=== PATIENT | female | born 1950 | race Two or more races ===

== ENCOUNTER 2017-01-03 08:50 | Emergency (ER) | payer OTHER, MEDICAID ==
[~2017-01-03] VITALS: Ht 160 cm; Wt 68.0 kg
[~2017-01-03 08:50] MED LIST: ASPI81CH43; CITA10TA70; INSLANTI; INSUINJ; INSUINJ2; LISI-646; METO-169; SIMV-8
[2017-01-03 09:42] VITALS: BP 162/83
[2017-01-03 09:54] LABS: Urine Bilirubin Negative (Negative); Urine Blood Negative /uL (Negative); Urine Color Yellow (Yellow); Urine Glucose Normal (Normal); Urine Ketone Negative (Negative); Urine Nitrite Negative (Negative); Urine RBC 2 /hpf (0 - 4); Urine Squamous Epithelial Cell FEW /hpf (<5); Urine Urobilinogen Normal (Negative)
== END 2017-01-03 11:18 | disposition home or self-care (01) ==
LOC: ER 08:54
DX: N39.0 Urinary tract infection, site not specified (principal); E11.9 Type 2 diabetes mellitus without complications; I10 Essential (primary) hypertension; E78.5 Hyperlipidemia, unspecified; Z90.710 Acquired absence of both cervix and uterus; Z98.51 Tubal ligation status; Z86.73 Personal history of transient ischemic attack (TIA), and cerebral infarction without residual deficits
CPT/HCPCS: 81001

== ENCOUNTER 2018-01-31 18:47 | Inpatient (IN) | payer OTHER, MEDICAID ==
[~2018-01-31] VITALS: Ht 162.6 cm; Wt 73.1 kg
[2018-01-31] MEDS ORDERED: cloNIDine HCL 0.1 MG TAB PO ONE (19:30)
[2018-01-31] MEDS ORDERED: cloNIDine HCL 0.1 MG TAB ONE (19:32)
[2018-01-31 20:08] LABS: Basophils # (auto) 0 uL; Basophils % (auto) 0.6 % (0.0-2.0); Eosinophils # (auto) 0.3 uL; Eosinophils % (auto) 4.4 % (0.0-7.0); Hematocrit 40.9 % (36.0-46.0); Hemoglobin 13.6 g/dL (12.2-16.2); Lymphocytes # (auto) 1.9 uL; Lymphocytes % (auto) 29.7 % (10.0-50.0); Mean Corpuscular Hemoglobin 32.3 pg (28.0-32.0); Mean Corpuscular Hgb Conc. 33.3 g/dL (32.0-36.0); Mean Corpuscular Volume 96.8 fL (80.0-100.0); Monocytes # (auto) 0.6 uL; Monocytes % (auto) 9.6 % (0.0-12.0); Neutrophils # (auto) 3.6 uL; Neutrophils % (auto) 55.7 % (37.0-80.0); Nucleated Red Blood Cells % 0.1 %; Platelet Count (auto) 253 10^3/uL (140-450); Red Blood Cells 4.23 10^6/uL (4.0-5.20); Red Cell Distribution Width 13.6 % (11.8-14.3); White Blood Cell 6.5 10^3/uL (4.4-10.8)
[2018-01-31 20:20] LABS: Blood Urea Nitrogen 22 mg/dL (7-18); Calcium 8.3 mg/dL (8.5-10.1); Chloride 106 mmol/L (98-107); Potassium 4.1 mmol/L (3.5-5.1); Sodium 139 mmol/L (136-145)
[2018-01-31 20:22] LABS: INR 0.96 (0.9-1.15); Partial Thromboplastin Time 28.2 sec (22.64-33.71); Prothrombin Time 10.5 sec (9.37-12.3)
[2018-01-31 20:24] LABS: Anion Gap 6 (5-15); Carbon Dioxide 27 mmol/L (21-32); Glucose 181 mg/dL (74-106)
[2018-01-31 20:25] LABS: Alanine Aminotransferase 21 U/L (13-56); Albumin 3.3 g/dL (3.4-5.0); BUN/Creatinine Ratio 27.2; GFR African American 91 mL/min; GFR Non-African American 75 mL/min; Magnesium 2.2 mg/dL (1.6-2.6)
[2018-01-31 20:36] LABS: Alkaline Phosphatase 94 U/L (45-117); Aspartate Aminotransferase 12 U/L (15-37); Bilirubin, Total 0.2 mg/dL (0.2-1.0); Total Protein 7.2 g/dL (6.4-8.2)
[2018-02-01] MEDS ORDERED: cloNIDine HCL 0.1 MG TAB PO PRN (06:30)
[2018-02-01] MEDS ORDERED: DEXTROSE (50%) 50ML SYRG IV PRN (06:30)
[2018-02-01] MEDS ORDERED: ONDANSETRON HCL 4 MG/2 ML VIAL IV PRN (06:30)
[2018-02-01] MEDS ORDERED: ACETAMINOPHEN 325 MG TAB PO PRN (06:30)
[2018-02-01] MEDS: LEVOTHYROXINE SODIUM 25 MCG TAB PO SCH (08:04)
[2018-02-01 08:33] LABS: Urine Bacteria MOD /hpf (None Seen); Urine Blood 1+ /uL (Negative); Urine Mucus FEW (None Seen); Urine Specific Gravity 1.021 (1.001-1.035); Urine WBC 1747 /hpf (0 - 5); Urine WBC Clumps PRESENT /hpf (None Seen)
[2018-02-01 08:54] LABS: Alcohol, Urine < 3.0 mg/dL (0-5); Amphetamine Screen, Urine NEGATIVE (NEGATIVE); Barbiturate Scree,Urine NEGATIVE (NEGATIVE); Benzodiazephine Screen, Urine NEGATIVE (NEGATIVE); Cannabinoid Screen, Urine NEGATIVE (NEGATIVE); Cocaine Screen, Urine NEGATIVE (NEGATIVE); Opiate Scree,Urine NEGATIVE (NEGATIVE); Phencyclidine Screen, Urine NEGATIVE (NEGATIVE)
[2018-02-01] MEDS ORDERED: LISINOPRIL 5 MG TAB PO SCH (10:00)
[2018-02-01] MEDS: METOPROLOL SUCCINATE XL 50 MG TAB PO SCH (10:36)
[2018-02-01] MEDS: FAMOTIDINE 20 MG TAB PO SCH ×2 (10:36→21:51)
[2018-02-01] MEDS: ENOXAPARIN SOD 40 MG/0.4 ML SYRINGE SC SCH (10:38)
[2018-02-01 10:45] VITALS: BP 169/75
[2018-02-01] MEDS ORDERED: DOCU-55 PO (10:52)
[2018-02-01] MEDS ORDERED: INSLANTI SC (10:52)
[2018-02-01] MEDS ORDERED: SIMV-8 PO (10:52)
[2018-02-01] MEDS ORDERED: INSLISPI SC (10:52)
[2018-02-01] MEDS ORDERED: TIZA4CAP7 PO (10:52)
[2018-02-01] MEDS ORDERED: LEVO50TA7 PO (10:52)
[2018-02-01] MEDS ORDERED: ASPI81TA27 PO (10:52)
[2018-02-01] MEDS ORDERED: LISI10TA6 PO (10:52)
[2018-02-01] MEDS ORDERED: METO25TA62 PO (10:52)
[2018-02-01 12:30] VITALS: BP 114/69
[2018-02-01] MEDS: ACCU-CHEK COMFORT CURVE STRIP VI SCH ×2 (12:40→20:00)
[2018-02-01] MEDS: InsuLIN REG 1unit/0.01ml Soln (100units/ml) SC SCH ×2 (12:40→18:00)
[2018-02-01] MEDS ORDERED: cefTRIAXone 1GM/10ml IVPUSH 10 ML IV ONE (14:00)
[2018-02-01] MEDS ORDERED: LISINOPRIL 5 MG TAB PO ONE (14:15)
[2018-02-01 16:57] VITALS: BP 158/78
[2018-02-01 20:00] VITALS: BP 136/70
[2018-02-01] MEDS: ATORVASTATIN 20 MG TAB PO SCH (21:50)
[2018-02-01] MEDS: INSULIN LANTUS (GLARGINE) 1 /0.01ml (100units/ml) SC SCH (21:51)
[2018-02-01 23:23] VITALS: BP 136/70
[2018-02-02] MEDS: ACCU-CHEK COMFORT CURVE STRIP VI SCH ×4 (00:09→17:58)
[2018-02-02] MEDS: InsuLIN REG 1unit/0.01ml Soln (100units/ml) SC SCH ×4 (00:09→17:59)
[2018-02-02 05:30] VITALS: BP 170/70
[2018-02-02 06:21] LABS: Basophils # (auto) 0 uL; Basophils % (auto) 0.6 % (0.0-2.0); Eosinophils # (auto) 0.3 uL; Eosinophils % (auto) 6.1 % (0.0-7.0); Hematocrit 34.9 % (36.0-46.0); Hemoglobin 11.8 g/dL (12.2-16.2); Lymphocytes # (auto) 1.6 uL; Lymphocytes % (auto) 31.6 % (10.0-50.0); Mean Corpuscular Hemoglobin 32.9 pg (28.0-32.0); Mean Corpuscular Hgb Conc. 33.8 g/dL (32.0-36.0); Mean Corpuscular Volume 97.4 fL (80.0-100.0); Monocytes # (auto) 0.5 uL; Monocytes % (auto) 10.9 % (0.0-12.0); Neutrophils # (auto) 2.5 uL; Neutrophils % (auto) 50.8 % (37.0-80.0); Nucleated Red Blood Cells % 0.1 %; Platelet Count (auto) 210 10^3/uL (140-450); Red Blood Cells 3.58 10^6/uL (4.0-5.20); Red Cell Distribution Width 13.8 % (11.8-14.3)
[2018-02-02] MEDS: LEVOTHYROXINE SODIUM 25 MCG TAB PO SCH (06:36)
[2018-02-02 06:45] LABS: Albumin 2.7 g/dL (3.4-5.0); Bilirubin, Total 0.4 mg/dL (0.2-1.0); Potassium 3.7 mmol/L (3.5-5.1); Total Protein 5.9 g/dL (6.4-8.2)
[2018-02-02] MEDS: cefTRIAXone 1GM/10ml IVPUSH 10 ML IV SCH (09:11)
[2018-02-02] MEDS: FAMOTIDINE 20 MG TAB PO SCH ×2 (09:14→22:45)
[2018-02-02] MEDS: ENOXAPARIN SOD 40 MG/0.4 ML SYRINGE SC SCH (09:14)
[2018-02-02] MEDS: LISINOPRIL 10 MG TAB PO SCH (09:15)
[2018-02-02] MEDS: METOPROLOL SUCCINATE XL 50 MG TAB PO SCH (09:16)
[2018-02-02 13:00] VITALS: BP 146/67
[2018-02-02 17:03] VITALS: BP 158/79
[2018-02-02 20:00] VITALS: BP 118/66
[2018-02-02 22:00] VITALS: BP 122/59
[2018-02-02] MEDS: INSULIN LANTUS (GLARGINE) 1 /0.01ml (100units/ml) SC SCH (22:00)
[2018-02-02] MEDS: ATORVASTATIN 20 MG TAB PO SCH (22:45)
[2018-02-02] MEDS: HYDROcodone-ACET 5/325MG TAB PO PRN (22:46)
[2018-02-03] MEDS: InsuLIN REG 1unit/0.01ml Soln (100units/ml) SC SCH ×4 (00:41→17:27)
[2018-02-03] MEDS: TEMAZEPAM 15 MG CAP PO PRN ×2 (00:41→22:19)
[2018-02-03] MEDS: ACCU-CHEK COMFORT CURVE STRIP VI SCH ×4 (00:41→17:27)
[2018-02-03 05:29] VITALS: BP 148/76
[2018-02-03] MEDS: LEVOTHYROXINE SODIUM 25 MCG TAB PO SCH (06:41)
[2018-02-03] MEDS: cefTRIAXone 1GM/10ml IVPUSH 10 ML IV SCH (08:47)
[2018-02-03 09:00] VITALS: BP 132/61
[2018-02-03] MEDS: ENOXAPARIN SOD 40 MG/0.4 ML SYRINGE SC SCH (09:23)
[2018-02-03] MEDS: LISINOPRIL 10 MG TAB PO SCH (09:24)
[2018-02-03] MEDS: METOPROLOL SUCCINATE XL 50 MG TAB PO SCH (09:25)
[2018-02-03] MEDS: FAMOTIDINE 20 MG TAB PO SCH ×2 (09:25→22:18)
[2018-02-03] MEDS ORDERED: LEV25T PO (09:54)
[2018-02-03 13:00] VITALS: BP 131/72
[2018-02-03 17:00] VITALS: BP 147/74
[2018-02-03 20:00] VITALS: BP 141/74
[2018-02-03] MEDS: HYDROcodone-ACET 5/325MG TAB PO PRN (20:43)
[2018-02-03 22:00] VITALS: BP 141/74
[2018-02-03] MEDS: ATORVASTATIN 20 MG TAB PO SCH (22:18)
[2018-02-03] MEDS: INSULIN LANTUS (GLARGINE) 1 /0.01ml (100units/ml) SC SCH (22:19)
[2018-02-04] MEDS: InsuLIN REG 1unit/0.01ml Soln (100units/ml) SC SCH ×2 (00:26→06:00)
[2018-02-04] MEDS: ACCU-CHEK COMFORT CURVE STRIP VI SCH ×2 (00:27→06:20)
[2018-02-04 05:00] VITALS: BP 146/71
[2018-02-04] MEDS: LEVOTHYROXINE SODIUM 25 MCG TAB PO SCH (06:35)
[2018-02-04] MEDS ORDERED: AMPI500C8 PO (08:44)
[2018-02-04] MEDS ORDERED: LISI10TA6 PO (08:49)
[2018-02-04 09:00] VITALS: BP 148/65
[2018-02-04] MEDS: cefTRIAXone 1GM/10ml IVPUSH 10 ML IV SCH (09:00)
[2018-02-04] MEDS: ENOXAPARIN SOD 40 MG/0.4 ML SYRINGE SC SCH (10:00)
[2018-02-04] MEDS: FAMOTIDINE 20 MG TAB PO SCH (11:07)
[2018-02-04] MEDS: METOPROLOL SUCCINATE XL 50 MG TAB PO SCH (11:07)
[2018-02-04] MEDS: LISINOPRIL 10 MG TAB PO SCH (11:08)
== END 2018-02-04 12:00 | disposition home or self-care (01) | DRG 292 ==
LOC: EDBD 18:47 → ER 18:47 → OVERFLOW 18:48 → CENTRAL 02-01 08:17
PROVIDERS: ADMIT Nurse Practitioner; ATTEND Internal Medicine
DX: I11.0 Hypertensive heart disease with heart failure (principal); E44.1 Mild protein-calorie malnutrition; G93.89 Other specified disorders of brain; I69.354 Hemiplegia and hemiparesis following cerebral infarction affecting left non-dominant side; N39.0 Urinary tract infection, site not specified; B96.20 Unspecified Escherichia coli [E. coli] as the cause of diseases classified elsewhere; E11.9 Type 2 diabetes mellitus without complications; I16.0 Hypertensive urgency; I50.9 Heart failure, unspecified; E03.9 Hypothyroidism, unspecified; E78.5 Hyperlipidemia, unspecified; F32.9 Major depressive disorder, single episode, unspecified; F41.9 Anxiety disorder, unspecified; I70.0 Atherosclerosis of aorta; Z74.01 Bed confinement status; Z79.899 Other long term (current) drug therapy; Z82.49 Family history of ischemic heart disease and other diseases of the circulatory system; Z83.3 Family history of diabetes mellitus; Z90.710 Acquired absence of both cervix and uterus; Z68.27 Body mass index [BMI] 27.0-27.9, adult
CPT/HCPCS: 36415; 51702; 70450; 71045; 80053; 80307; 81001; 82962; 83735; 83880; 84443; 84484; 85025; 85379; 85610; 85730; 87086; 87088; 87186; 93005; 93970; 94761; J1815

== ENCOUNTER 2018-09-04 18:40 | Emergency (ER) | payer OTHER, MEDICAID ==
[~2018-09-04] VITALS: Ht 160 cm; Wt 72.6 kg
[~2018-09-04 18:40] MED LIST changes: +AMPI500C8 PO; -ASPI81CH43; +ASPI81TA27 PO; -CITA10TA70; +DOCU-55 PO; -INSLANTI; +INSLANTI SC; +INSLISPI SC; -INSUINJ; -INSUINJ2; +LEV25T PO; -LISI-646; +LISI10TA6 PO; -METO-169; +METO25TA62 PO; -SIMV-8; +SIMV-8 PO; +TIZA4CAP7 PO
[2018-09-04 20:39] LABS: Basophils # (auto) 0 uL; Basophils % (auto) 0.6 % (0.0-2.0); Eosinophils # (auto) 0.3 uL; Eosinophils % (auto) 4.3 % (0.0-7.0); Hematocrit 37.7 % (36.0-46.0); Hemoglobin 12.6 g/dL (12.2-16.2); Lymphocytes # (auto) 1.7 uL; Lymphocytes % (auto) 27.6 % (10.0-50.0); Mean Corpuscular Hemoglobin 32.8 pg (28.0-32.0); Mean Corpuscular Hgb Conc. 33.5 g/dL (32.0-36.0); Mean Corpuscular Volume 97.9 fL (80.0-100.0); Monocytes # (auto) 0.6 uL; Monocytes % (auto) 9.2 % (0.0-12.0); Neutrophils # (auto) 3.5 uL; Neutrophils % (auto) 58.3 % (37.0-80.0); Platelet Count (auto) 208 10^3/uL (140-450); Red Blood Cells 3.85 10^6/uL (4.0-5.20); Red Cell Distribution Width 13.4 % (11.8-14.3); White Blood Cell 6.1 10^3/uL (4.4-10.8)
[2018-09-04 20:55] LABS: INR 0.99 (0.9-1.15); Partial Thromboplastin Time 27.9 sec (23.78-33.04); Prothrombin Time 10.6 sec (9.27-12.13)
[2018-09-04 20:56] LABS: Albumin 3.1 g/dL (3.4-5.0); BUN/Creatinine Ratio 27.2; Calcium 7.8 mg/dL (8.5-10.1)
[2018-09-04 20:59] LABS: Bilirubin, Total 0.2 mg/dL (0.2-1.0); Total Protein 6.7 g/dL (6.4-8.2)
[2018-09-04 22:46] VITALS: BP 155/70
== END 2018-09-04 23:14 | disposition home or self-care (01) ==
LOC: EDBD 18:40 → ER 18:45
DX: E11.65 Type 2 diabetes mellitus with hyperglycemia (principal); E86.0 Dehydration; R53.1 Weakness; E78.5 Hyperlipidemia, unspecified; I10 Essential (primary) hypertension; Z86.73 Personal history of transient ischemic attack (TIA), and cerebral infarction without residual deficits; Z79.4 Long term (current) use of insulin; Z90.710 Acquired absence of both cervix and uterus; Z98.51 Tubal ligation status
CPT/HCPCS: 36415; 71045; 80053; 85025; 85610; 85730; 93005

== ENCOUNTER 2018-09-19 13:32 | Emergency (ER) | payer OTHER, MEDICAID ==
[~2018-09-19] VITALS: Ht 160 cm; Wt 72.6 kg
[2018-09-19 13:50] VITALS: BP 163/70
== END 2018-09-19 15:33 | disposition home or self-care (01) ==
LOC: ER 13:32
DX: I10 Essential (primary) hypertension (principal); E11.9 Type 2 diabetes mellitus without complications; E78.5 Hyperlipidemia, unspecified; Z86.73 Personal history of transient ischemic attack (TIA), and cerebral infarction without residual deficits; Z90.710 Acquired absence of both cervix and uterus; Z98.51 Tubal ligation status; Z87.440 Personal history of urinary (tract) infections; Z79.2 Long term (current) use of antibiotics; Z79.4 Long term (current) use of insulin
CPT/HCPCS: 82962

== ENCOUNTER → 2019-01-29 | Outpatient (CLI) | payer OTHER, MEDICAID | END | disposition home or self-care (01) | LOC: Rad HDHVI 12:24 | PROVIDERS: ATTEND Internal Medicine Cardiovascular Disease | DX: I12.9 Hypertensive chronic kidney disease with stage 1 through stage 4 chronic kidney disease, or unspecified chronic kidney disease (principal); N18.3 Chronic kidney disease, stage 3 (moderate); Z95.0 Presence of cardiac pacemaker | CPT/HCPCS: 93306 ==

== ENCOUNTER 2019-04-08 17:02 | Emergency (ER) | payer OTHER, MEDICAID ==
[~2019-04-08] VITALS: Ht 157.5 cm; Wt 68.0 kg
[~2019-04-08 17:02] MED LIST changes: -AMPI500C8 PO; -DOCU-55 PO; -LEV25T PO; +LEVO25TA6 PO; +LEVO50TA7 PO; -LISI10TA6 PO; -TIZA4CAP7 PO
[2019-04-08 23:44] VITALS: BP 117/54
== END 2019-04-09 01:00 | disposition left against medical advice (07) ==
LOC: EDBD 17:02 → ER 17:08
DX: M25.561 Pain in right knee (principal); Z53.21 Procedure and treatment not carried out due to patient leaving prior to being seen by health care provider
CPT/HCPCS: 73562

== ENCOUNTER → 2019-07-30 | Outpatient (CLI) | payer OTHER, MEDICAID ==
[~2019-07-30] VITALS: Ht 160 cm; Wt 72.6 kg
[~2019-07-30] MED LIST changes: +ADENOSINE 61 MG in GIVE UN-DILUTED 0 ML IV ONE; +ADENOSINE 90 MG/30 ML INJ IV ONE; +ASPI-404 PO; -ASPI81TA27 PO; +ONDANSETRON HCL 4 MG/2 ML VIAL ONE
== END | disposition home or self-care (01) ==
LOC: Rad HDHVI 13:04
PROVIDERS: ATTEND Internal Medicine
DX: E78.5 Hyperlipidemia, unspecified (principal); I10 Essential (primary) hypertension; I63.9 Cerebral infarction, unspecified; I42.9 Cardiomyopathy, unspecified
CPT/HCPCS: 78452; 93005; 96374; 96375; A9500; J0153; J2405